=== PATIENT | male | born 1965 | race Caucasian/White ===

== ENCOUNTER 2018-09-26 11:24 | Emergency (ER) | payer MEDICAID, MEDICARE ==
[2018-09-26] MEDS ORDERED: Ibuprofen 800 MG TAB ONE (11:53)
== END 2018-09-26 12:13 | disposition home or self-care (01) ==
LOC: BURERS 11:24
DX: M25.511 Pain in right shoulder (principal); G47.30 Sleep apnea, unspecified; E78.00 Pure hypercholesterolemia, unspecified; F20.9 Schizophrenia, unspecified; F31.9 Bipolar disorder, unspecified; F17.220 Nicotine dependence, chewing tobacco, uncomplicated; Z79.899 Other long term (current) drug therapy
CPT/HCPCS: 99283

== ENCOUNTER 2018-10-08 13:13 | Emergency (ER) | payer MEDICARE ==
[2018-10-08] MEDS ORDERED: predniSONE 20 MG TAB ONE (14:03)
== END 2018-10-08 14:24 | disposition home or self-care (01) ==
LOC: BURERS 13:13
DX: M54.12 Radiculopathy, cervical region (principal); R03.0 Elevated blood-pressure reading, without diagnosis of hypertension; G47.30 Sleep apnea, unspecified; E78.00 Pure hypercholesterolemia, unspecified; F31.9 Bipolar disorder, unspecified; F20.9 Schizophrenia, unspecified; F17.220 Nicotine dependence, chewing tobacco, uncomplicated; Z79.899 Other long term (current) drug therapy

== ENCOUNTER 2018-10-10 04:51 | Emergency (ER) | payer MEDICARE ==
[2018-10-10] MEDS ORDERED: Ketorolac Tromethamine 60 MG/2 ML VIAL ONE (05:02)
== END 2018-10-10 05:40 | disposition home or self-care (01) ==
LOC: BURERS 04:51
DX: M25.511 Pain in right shoulder (principal); M19.90 Unspecified osteoarthritis, unspecified site; E78.00 Pure hypercholesterolemia, unspecified; F31.9 Bipolar disorder, unspecified; F17.220 Nicotine dependence, chewing tobacco, uncomplicated; Z79.899 Other long term (current) drug therapy
CPT/HCPCS: 96372; J1885

== ENCOUNTER 2019-01-10 11:51 | Emergency (ER) | payer MEDICAID, MEDICARE ==
[2019-01-10] MEDS ORDERED: Ketorolac Tromethamine 60 MG/2 ML VIAL ONE (12:28)
== END 2019-01-10 12:37 | disposition home or self-care (01) ==
LOC: BURERS 11:51
DX: S39.012A Strain of muscle, fascia and tendon of lower back, initial encounter (principal); F20.9 Schizophrenia, unspecified; F31.9 Bipolar disorder, unspecified; F17.220 Nicotine dependence, chewing tobacco, uncomplicated; X50.9XXA Other and unspecified overexertion or strenuous movements or postures, initial encounter
CPT/HCPCS: 96372; J1885

== ENCOUNTER 2019-05-28 21:25 | Emergency (ER) | payer MEDICARE, MEDICAID | END 2019-05-28 21:41 | disposition left against medical advice (07) | LOC: BURERS 21:25 | DX: R51 Headache (principal); G47.30 Sleep apnea, unspecified; E78.00 Pure hypercholesterolemia, unspecified; F17.220 Nicotine dependence, chewing tobacco, uncomplicated; F31.9 Bipolar disorder, unspecified; Z79.899 Other long term (current) drug therapy | CPT/HCPCS: 99283 ==

== ENCOUNTER → 2020-04-20 | Emergency (ER) | payer MEDICAID, MEDICARE ==
[~2020-04-20] MED LIST: Fluorescein Opthalmic Strip ONE; Tetracaine 0.5% OPHTH SOLN/PF 4 ML BOT ONE
== END ==
LOC: BURERS 08:45
DX: S05.01XA Injury of conjunctiva and corneal abrasion without foreign body, right eye, initial encounter (principal); G47.30 Sleep apnea, unspecified; E78.00 Pure hypercholesterolemia, unspecified; M19.90 Unspecified osteoarthritis, unspecified site; F25.9 Schizoaffective disorder, unspecified; F17.290 Nicotine dependence, other tobacco product, uncomplicated; Z79.899 Other long term (current) drug therapy; W26.8XXA Contact with other sharp object(s), not elsewhere classified, initial encounter
CPT/HCPCS: 99283

== ENCOUNTER 2020-05-01 18:40 | Emergency (ER) | payer MEDICARE ==
[2020-05-01] MEDS ORDERED: Tetracaine 0.5% OPHTH SOLN/PF 4 ML BOT ONE (18:55)
[2020-05-01] MEDS ORDERED: Fluorescein Opthalmic Strip ONE (18:55)
[2020-05-01] MEDS ORDERED: Gentamicin Ophth Soln 0.3% 5 ml Bottle ONE (20:37)
[2020-05-01] MEDS ORDERED: Adacel (T-DAP) 0.5 ML SYRINGE ONE (20:43)
--- NOTE | 2020-05-01 20:50 | CT ---
CT OF THE ORBITS WITHOUT CONTRAST: 05/01/[address] of the orbits was done for evaluation of right orbital pain. There is a history of a potential foreign body to the eye about three weeks prior to admission. An opaque foreign body is indeed present in the right globe. It appears metallic in nature. It is loc ated just inferior to the lens and is most likely in the anterior part of the posterior chamber. The retro-orbital areas were unremarkable bilaterally. No orbital or surrounding facial fractures wer e seen. There is deviation of the nasal septum to the left which is almost certainly a longstanding f inding. The visible paranasal sinuses are clear except for some minor mucosal thickening in the floor of the right maxillary sinus. IMPRESSION: Foreign body within the right globe as described above. Preliminary report discussed with Dr. Sinha at 1941 on 05/01/20. POS: HOME
== END 2020-05-01 21:42 | disposition short-term general hospital (02) ==
LOC: BURERS 18:40
DX: S05.32XA Ocular laceration without prolapse or loss of intraocular tissue, left eye, initial encounter (principal); E78.00 Pure hypercholesterolemia, unspecified; F17.200 Nicotine dependence, unspecified, uncomplicated; Z79.899 Other long term (current) drug therapy; X58.XXXA Exposure to other specified factors, initial encounter
CPT/HCPCS: 70480; 90471; 90715

== ENCOUNTER 2020-11-26 10:25 | Emergency (ER) | payer MEDICARE, MEDICAID ==
[2020-11-26 23:00] LABS: SARS-CoV-2 PCR by NAA Not Detected (NotDetected)
== END 2020-11-26 11:50 | disposition home or self-care (01) ==
LOC: BURERS 10:25
DX: J18.9 Pneumonia, unspecified organism (principal); G47.30 Sleep apnea, unspecified; M19.90 Unspecified osteoarthritis, unspecified site; E78.00 Pure hypercholesterolemia, unspecified; F17.200 Nicotine dependence, unspecified, uncomplicated; Z20.822 Contact with and (suspected) exposure to COVID-19; Z79.899 Other long term (current) drug therapy
CPT/HCPCS: 71046; 87635; 87804; U0003; U0005

== ENCOUNTER 2021-05-09 20:18 | Emergency (ER) | payer MEDICARE | END 2021-05-09 20:45 | disposition home or self-care (01) | LOC: BURERS 20:18 | DX: H65.92 Unspecified nonsuppurative otitis media, left ear (principal); G47.30 Sleep apnea, unspecified; M19.90 Unspecified osteoarthritis, unspecified site; E78.00 Pure hypercholesterolemia, unspecified; F17.200 Nicotine dependence, unspecified, uncomplicated; Z79.899 Other long term (current) drug therapy | CPT/HCPCS: 99282 ==